=== PATIENT | male | born 1955 | race Caucasian/White ===

== ENCOUNTER 2022-01-14 06:18 | Inpatient (IN) | payer MEDICARE ==
[~2022-01-14] VITALS: Ht 182.9 cm; Wt 110.4 kg
[2022-01-14] MEDS ORDERED: KETOROLAC 30MG/ML VIAL IV STA (07:59)
[2022-01-14] MEDS ORDERED: ONDANSETRON HCL 4MG/2ML INJ IV STA ×2 (07:59→11:48)
[2022-01-14] MEDS ORDERED: PANTOPRAZOLE SODIUM 40 MG/VIAL IV ONE (08:00)
[2022-01-14] MEDS ORDERED: SODIUM CHLORIDE 0.9% 1,000 ML IV ONE ×2 (08:00→11:45)
[2022-01-14 08:10] LABS: HEMATOCRIT. 52.5 % (42.0-52.0); HEMOGLOBIN. 18.4 g/dL (14.0-18.0); MEAN CORPUSCULAR HEMOGLOBIN 29.9 pg (28.0-32.0); MEAN CORPUSCULAR VOLUME 85.2 fL (80.0-94.0); MEAN PLATELET VOLUME 7.8 fl (7.4-10.4); PLATELET 136 x1000/uL (130-400); RED BLOOD CELL COUNT 6.16 mill/uL (4.7-6.1); RED CELL DISTRIBUTION WIDTH 13.9 % (11.6-14.6)
[2022-01-14 08:27] LABS: CHLORIDE 112 mEq/L (98-107)
[2022-01-14 08:53] LABS: PLATELET ESTIMATE NORMAL
[2022-01-14] MEDS ORDERED: PIPERACILLIN/TAZOBACTAM 3.375GM/50ML PREMIX IV ONE (11:45)
[2022-01-14] MEDS ORDERED: MORPHINE SULFATE 4 MG/ML CPJ (NOT FOR IM USE) IV STA (11:48)
[2022-01-14 12:31] LABS: CLARITY URINE CLOUDY (CLEAR); COLOR URINE DARK YELLOW (YELLOW); KETONES URINE TRACE (NEGATIVE); LEUKOCYTE ESTERASE URINE NEGATIVE (NEGATIVE); NITRITE URINE NEGATIVE (NEGATIVE); OCCULT BLOOD URINE NEGATIVE (NEGATIVE); PROTEIN URINE 2+ (NEGATIVE); SPECIFIC GRAVITY URINE 1.024 (1.005-1.030); UROBILINOGEN URINE 0.2 E.U./dL (0.2-1.0)
[2022-01-14] MEDS: DEXT 5%/0.45% NACL 1000ML 1,000 ML IV SCH ×2 (17:01→22:46)
[2022-01-14] MEDS ORDERED: MORPHINE SULFATE 4 MG/ML CPJ (NOT FOR IM USE) IV ONE (17:30)
[2022-01-14 20:00] VITALS: BP 144/57
[2022-01-14] MEDS ORDERED: PIPERACILLIN/TAZOBACTAM 3.375 G in DEXTROSE 5% WATER 50 ML IV SCH (21:00)
[2022-01-14] MEDS ORDERED: LORAZEPAM 2MG/ML CPJ IV PRN (22:00)
[2022-01-14] MEDS ORDERED: CLONIDINE 0.1MG TABLET PO PRN (22:00)
[2022-01-14] MEDS ORDERED: HYDRALAZINE 20MG/ML VIAL IV PRN (22:00)
[2022-01-14] MEDS ORDERED: DOCUSATE SODIUM 100MG CAPSULE PO PRN (22:00)
[2022-01-14] MEDS ORDERED: MORPHINE SULFATE 2 MG/ML CPJ (NOT FOR IM USE) IV PRN (22:00)
[2022-01-14] MEDS ORDERED: ACETAMINOPHEN 325MG TABLET PO PRN (22:00)
[2022-01-14] MEDS ORDERED: IPRATROPIUM/ALBUTEROL 0.5-3(2.5)MG/3ML NEB HHN PRN (22:00)
[2022-01-14] MEDS ORDERED: DIPHENHYDRAMINE 50MG/ML VIAL IV PRN (22:00)
[2022-01-14] MEDS ORDERED: GUAIFENESIN 200MG/10ML SUGAR FREE UDC PO PRN (22:00)
[2022-01-14] MEDS: ENOXAPARIN 30MG/0.3ML SYR SUBCUT SCH (23:00)
[2022-01-15] VITALS: BP 117/63
[2022-01-15] MEDS: SODIUM CHLORIDE 0.9% INJ 3ML FLUSH IVF SCH ×4 (00:19→21:17)
[2022-01-15] MEDS ORDERED: PANT40TA51 PO (00:54)
[2022-01-15] MEDS ORDERED: LOSA100T32 PO (00:54)
[2022-01-15] MEDS ORDERED: METF-414 PO (00:54)
[2022-01-15 04:00] VITALS: BP_SYST 117; BP_SYST 177; BP_DIAS 53
[2022-01-15 04:35] VITALS: BP 126/66
[2022-01-15] MEDS: PIPERACILLIN/TAZOBACTAM 3.375 G in DEXTROSE 5% WATER 50 ML IV SCH ×3 (05:34→21:12)
[2022-01-15 07:52] VITALS: BP 142/73
[2022-01-15 08:01] LABS: CHLORIDE 105 mEq/L (98-107)
[2022-01-15 08:02] LABS: HEMATOCRIT. 49.3 % (42.0-52.0); MEAN CORPUSCULAR HEMOGLOBIN 29.6 pg (28.0-32.0); MEAN CORPUSCULAR VOLUME 85.7 fL (80.0-94.0); MEAN PLATELET VOLUME 8.5 fl (7.4-10.4); PLATELET 120 x1000/uL (130-400); RED BLOOD CELL COUNT 5.75 mill/uL (4.7-6.1); RED CELL DISTRIBUTION WIDTH 14.1 % (11.6-14.6)
[2022-01-15 08:15] LABS: PHOSPHORUS 2.1 mg/dL (2.5-4.9)
[2022-01-15 08:19] LABS: HEPATITIS B SURFACE ANTIGEN NEGATIVE
[2022-01-15] MEDS: ENOXAPARIN 30MG/0.3ML SYR SUBCUT SCH ×2 (09:14→21:12)
[2022-01-15] MEDS ORDERED: POTASSIUM CHLORIDE 20MEQ TABLET SR PO SCH (09:30)
[2022-01-15] MEDS: ONDANSETRON HCL 4MG/2ML INJ IV PRN (11:39)
[2022-01-15 15:18] LABS: ATYPICAL LYMPHOCYTES 1; PLATELET ESTIMATE SLIGHTLY DECREASED
[2022-01-15 16:00] VITALS: BP 135/83
[2022-01-15] MEDS: HYDROCODONE/ACETAMINOPHEN 5/325MG TABLET PO PRN (19:00)
[2022-01-15 20:00] VITALS: BP 110/77
[2022-01-15] MEDS: DEXT 5%/0.45% NACL 1000ML 1,000 ML IV SCH (21:13)
[2022-01-16] VITALS: BP 121/76
[2022-01-16 00:43] LABS: CHLORIDE 104 mEq/L (98-107)
[2022-01-16] MEDS ORDERED: POTASSIUM CHLORIDE 20MEQ TABLET SR PO NR (02:15)
[2022-01-16 04:00] VITALS: BP 115/77
[2022-01-16] MEDS: PIPERACILLIN/TAZOBACTAM 3.375 G in DEXTROSE 5% WATER 50 ML IV SCH ×3 (05:26→21:00)
[2022-01-16] MEDS: DEXT 5%/0.45% NACL 1000ML 1,000 ML IV SCH ×2 (05:27→21:00)
[2022-01-16 07:47] LABS: HEMATOCRIT. 52.3 % (42.0-52.0); HEMOGLOBIN. 17.8 g/dL (14.0-18.0); MEAN CORPUSCULAR HEMOGLOBIN 29.2 pg (28.0-32.0); MEAN CORPUSCULAR VOLUME 85.8 fL (80.0-94.0); MEAN PLATELET VOLUME 8.6 fl (7.4-10.4); PLATELET 148 x1000/uL (130-400); RED BLOOD CELL COUNT 6.09 mill/uL (4.7-6.1); RED CELL DISTRIBUTION WIDTH 14.1 % (11.6-14.6)
[2022-01-16 08:00] VITALS: BP 126/84
[2022-01-16] MEDS: ENOXAPARIN 30MG/0.3ML SYR SUBCUT SCH ×2 (08:03→20:44)
[2022-01-16] MEDS: HYDROCODONE/ACETAMINOPHEN 5/325MG TABLET PO PRN ×2 (08:04→12:33)
[2022-01-16 08:07] LABS: CHLORIDE 105 mEq/L (98-107)
[2022-01-16 08:14] LABS: PHOSPHORUS 2.2 mg/dL (2.5-4.9)
[2022-01-16] MEDS: CARVEDILOL 12.5MG TABLET PO SCH ×2 (10:22→20:31)
[2022-01-16 12:00] VITALS: BP 102/74
[2022-01-16 14:28] LABS: PLATELET ESTIMATE NORMAL
[2022-01-16 16:00] VITALS: BP 101/71
[2022-01-16] MEDS ORDERED: NALOXONE HCL 0.4MG/ML VIAL IV PRN (18:45)
[2022-01-16 20:06] VITALS: BP 111/62
[2022-01-17 00:13] VITALS: BP 106/62
[2022-01-17] MEDS: MAGNESIUM/ALUMINUM HYDROXIDE/SIMETHICONE 30ML UDC PO PRN (02:30)
[2022-01-17 04:00] VITALS: BP 154/87
[2022-01-17] MEDS: PIPERACILLIN/TAZOBACTAM 3.375 G in DEXTROSE 5% WATER 50 ML IV SCH ×3 (05:39→21:25)
[2022-01-17] MEDS: HYDROCODONE/ACETAMINOPHEN 5/325MG TABLET PO PRN ×3 (05:46→19:05)
[2022-01-17 06:07] LABS: HEMATOCRIT. 46.8 % (42.0-52.0); HEMOGLOBIN. 16.1 g/dL (14.0-18.0); MEAN CORPUSCULAR HEMOGLOBIN 29.2 pg (28.0-32.0); PLATELET 164 x1000/uL (130-400); RED BLOOD CELL COUNT 5.51 mill/uL (4.7-6.1); RED CELL DISTRIBUTION WIDTH 14.1 % (11.6-14.6)
[2022-01-17 08:00] VITALS: BP 121/76
[2022-01-17 08:19] LABS: CHLORIDE 103 mEq/L (98-107)
[2022-01-17 08:28] LABS: PHOSPHORUS 2.9 mg/dL (2.5-4.9)
[2022-01-17] MEDS: CARVEDILOL 12.5MG TABLET PO SCH ×2 (08:54→21:25)
[2022-01-17] MEDS: ENOXAPARIN 30MG/0.3ML SYR SUBCUT SCH ×2 (08:54→21:25)
[2022-01-17] MEDS: DEXT 5%/0.45% NACL 1000ML 1,000 ML IV SCH (10:29)
[2022-01-17] MEDS ORDERED: POTASSIUM CHLORIDE 20MEQ TABLET SR PO SCH (11:00)
[2022-01-17] MEDS: ONDANSETRON HCL 4MG/2ML INJ IV PRN (11:54)
[2022-01-17 12:00] VITALS: BP 120/76
[2022-01-17 14:55] LABS: PLATELET ESTIMATE NORMAL
[2022-01-17 16:00] VITALS: BP 103/53
[2022-01-17] MEDS: DEXT 5%/0.45% NACL KCL 40MEQ/L 1,000 ML IV SCH (18:42)
[2022-01-17 20:00] VITALS: BP 117/69
[2022-01-18] VITALS: BP 102/66
[2022-01-18 04:00] VITALS: BP 107/60
[2022-01-18] MEDS: DEXT 5%/0.45% NACL KCL 40MEQ/L 1,000 ML IV SCH ×2 (04:37→13:23)
[2022-01-18] MEDS: PIPERACILLIN/TAZOBACTAM 3.375 G in DEXTROSE 5% WATER 50 ML IV SCH ×2 (06:00→13:22)
[2022-01-18 08:00] VITALS: BP 117/71
[2022-01-18 08:44] LABS: HEMATOCRIT. 49.4 % (42.0-52.0); HEMOGLOBIN. 16.7 g/dL (14.0-18.0); MEAN CORPUSCULAR HEMOGLOBIN 28.9 pg (28.0-32.0); MEAN CORPUSCULAR VOLUME 85.4 fL (80.0-94.0); MEAN PLATELET VOLUME 7.9 fl (7.4-10.4); PLATELET 185 x1000/uL (130-400); RED BLOOD CELL COUNT 5.79 mill/uL (4.7-6.1); RED CELL DISTRIBUTION WIDTH 13.9 % (11.6-14.6)
[2022-01-18] MEDS: CARVEDILOL 12.5MG TABLET PO SCH (08:49)
[2022-01-18] MEDS: ENOXAPARIN 30MG/0.3ML SYR SUBCUT SCH (08:49)
[2022-01-18 08:55] LABS: CHLORIDE 102 mEq/L (98-107)
[2022-01-18 09:01] LABS: PHOSPHORUS 2.8 mg/dL (2.5-4.9)
[2022-01-18] MEDS: MAGNESIUM/ALUMINUM HYDROXIDE/SIMETHICONE 30ML UDC PO PRN (11:16)
[2022-01-18 12:00] VITALS: BP 112/65
[2022-01-18 15:28] VITALS: BP 112/65
[2022-01-18 16:00] VITALS: BP 138/80
[2022-01-18 16:20] LABS: PLATELET ESTIMATE NORMAL
== END 2022-01-18 17:15 | disposition home or self-care (01) | DRG 391 ==
LOC: ER 06:18 → EDBEDREQ 12:22 → 7EST 13:06 → EDBEDREQ 13:14 → EDBEDREQTM 13:14 → ENRESERV 14:05
PROVIDERS: ADMIT Internal Medicine; ATTEND Internal Medicine
DX: A09 Infectious gastroenteritis and colitis, unspecified (principal); U07.1 COVID-19; N17.9 Acute kidney failure, unspecified; R73.9 Hyperglycemia, unspecified; I48.0 Paroxysmal atrial fibrillation; E87.6 Hypokalemia; R00.0 Tachycardia, unspecified; R74.01 Elevation of levels of liver transaminase levels; D72.825 Bandemia; E66.9 Obesity, unspecified; E86.0 Dehydration; Z90.49 Acquired absence of other specified parts of digestive tract; Z68.33 Body mass index [BMI] 33.0-33.9, adult; Z79.899 Other long term (current) drug therapy
CPT/HCPCS: 36415; 74176; 80048; 80053; 80076; 81003; 82248; 82270; 82962; 83735; 84100; 85025; 86705; 86709; 86803; 87015; 87045; 87186; 87340; 87426; 87427; 87449; 87493; 89055; 93005; 99285; C9113; J1650; J1885; J2270; J2405; J2543; J7030; J7060